=== PATIENT | female | born 1960 | race Caucasian/White ===

== ENCOUNTER 2021-12-21 16:23 | Emergency (ER) | payer BC ==
[2021-12-21] MEDS ORDERED: Iopamidol 612 MG/ML 100 ML Bottle IV ONE (16:24)
[2021-12-21] MEDS ORDERED: Sodium Chloride 0.9% 10 ML Syringe FLUSH PRN (18:20)
[2021-12-21] MEDS ORDERED: Sodium Chloride 0.9% 1,000 ML IV STA (18:40)
[2021-12-21] MEDS ORDERED: HYDROmorphone 0.5 MG/0.5 ML Syringe IVPUSH ONE (18:40)
[2021-12-21] MEDS ORDERED: Ondansetron 4 MG/2 ML SDV IVPUSH ONE (18:40)
[2021-12-21 20:06] LABS: CORONAVIRUS COVID-19 NAA NEGATIVE (NEGATIVE)
[2021-12-21] MEDS ORDERED: Piperacillin/Tazobactam 4.5 GM in Sodium Chloride 0.9% 100 ML IV ONE (20:37)
== END 2021-12-21 21:15 ==
LOC: JD.ED 16:23
DX: K35.32 Acute appendicitis with perforation, localized peritonitis, and gangrene, without abscess (principal); Z20.822 Contact with and (suspected) exposure to COVID-19
CPT/HCPCS: 0240U; 36415; 74177; 80053; 81001; 83690; 85025; 86140; 96361; 96374; 96375; 99285; J1170; J2405; J2543; J3490; J7030; Q9967; 99284